=== PATIENT | female | born 1945 ===

== ENCOUNTER → 2016-12-07 | Outpatient (CLI) | payer BC ==
--- NOTE | 2016-12-07 16:57 | RADRPT ---
PROCEDURE: Video-fluoroscopy swallowing study. CLINICAL INDICATION: Dysphagia. TECHNIQUE: Fluoroscopic guided video swallowing study was done in conjunction with the speech ther apist. The study was confined to the oral, pharyngeal, and cervical phases of the swallowing mechani sm. 2.1 minutes of fluoroscopy time was used. COMPARISON: No prior study is available for comparison. FINDINGS: There is trace to mild penetration with all consistencies. There is no aspiration during swallowing . IMPRESSION: 1. Trace to mild penetration. No aspiration during swallowing. 2. Please refer to the speech therapist's recommendations for future feedings. RPTAT: QQ .Vern Fowler MD, MD Date Time Electronically viewed and signed by .Vern Fowler MD, MD on 12/07/2016 16:56 .R/
== END | disposition home or self-care (01) ==
LOC: RAD 12:15
PROVIDERS: ATTEND Internal Medicine
DX: R13.10 Dysphagia, unspecified (principal)
CPT/HCPCS: 74230